=== PATIENT | female | born 1955 | race Caucasian/White ===

== ENCOUNTER → 2017-03-29 | Outpatient (CLI) | payer BC ==
--- NOTE | 2017-03-30 09:09 | MM ---
Reason for exam: screening (asymptomatic). Last mammogram was performed 4 years and 6 months ago. History: Patient is postmenopausal, has history of other cancer at age 61, and has history of endometrial cancer at age 29. Family history of breast cancer in sister at age 52. Benign excisional biopsy of the right breast, November 06, 1998. Excisional biopsy of the left breast. Took estrogen for 5 years beginning at age 42. Physical Findings: A clinical breast exam by your physician is recommended on an annual basis and results should be correlated with mammographic findings. MG 3D Screening Mammo W/Cad Bilateral CC and MLO view(s) were taken. Prior study comparison: September 14, 2012, bilateral digital screening mammo w/CAD. July 14, 2010, [facility] DIGITAL LEFT BREAST MAMMOGRAM w/CAD. The breast tissue is heterogeneously dense. This may lower the sensitivity of mammography. Stable benign calcifications. There is chronic nodularity bilaterally. No significant changes when compared with prior studies. ASSESSMENT: Benign, BI-RAD 2 RECOMMENDATION: Routine screening mammogram of both breasts in 1 year.
== END | disposition home or self-care (01) ==
LOC: RADMAMWWP 14:38
PROVIDERS: ATTEND Obstetrics & Gynecology
DX: Z12.31 Encounter for screening mammogram for malignant neoplasm of breast (principal); Z80.3 Family history of malignant neoplasm of breast
CPT/HCPCS: 77063; G0202

== ENCOUNTER → 2017-07-29 | Outpatient (CLI) | payer BC ==
--- NOTE | 2017-07-29 15:19 | CT ---
EXAMINATION TYPE: CT sinus wo con DATE OF EXAM: 07/29/2017 COMPARISON: CT facial bones March 07, 2011. CT brain August 31, 2014. HISTORY: Chronic sinusitis per order. Facial pain and congestion for 3+ weeks. CT DLP: 578 mGycm. Automated Exposure Control for Dose Reduction was Utilized. TECHNIQUE: CT scan of the sinuses is performed without contrast, axial images are obtained, coronal r eformatted images are also reviewed. FINDINGS: There is moderate to severe mucosal thickening in bilateral maxillary sinuses with patchy o pacification and air-fluid level in right maxillary sinus noted. There is been prior surgery at level frontal sinuses with craniectomy defect, there is defect in oute r wall of overlying curvilinear device. This is not significantly changed from 2015 CT. There is low dense soft tissue filling left frontal sinus with more oval hyperdense tissue filling posterior infer ior right frontal sinus extending into anterior right ethmoid sinus. There is fracture deformity of s uperior nasal bridge and bones. This is not significantly changed from 2015 CT. There is mild residual mucosal thickening involving ethmoid sinuses. Sphenoid sinuses show no suspici ous opacification currently. The surgically treated ostiomeatal complex is patent bilaterally. Visualized portion of mastoid air cells show no abnormal opacification. The globes are intact bilate rally. Visualized portion of brain parenchyma is unremarkable. IMPRESSION: Recurrent acute on chronic bilateral maxillary sinus disease despite sinus surgery.
== END | disposition home or self-care (01) ==
LOC: RADCTMAIN 11:14
PROVIDERS: ATTEND Family Medicine
DX: J01.01 Acute recurrent maxillary sinusitis (principal); J32.0 Chronic maxillary sinusitis
CPT/HCPCS: 70486

== ENCOUNTER → 2018-08-21 | Outpatient (CLI) | payer BC ==
--- NOTE | 2018-08-21 18:33 | US ---
EXAMINATION TYPE: US abdomen limited DATE OF EXAM: 08/21/2018 COMPARISON: NONE CLINICAL HISTORY: M79.3 Panniculitis, unspecified. Panniculitis has a red lump area on abdomen where she gives her insulin injections. Fluid collection seen measuring 1.2 x .3 x .6 cm. IMPRESSION: There is small irregular nonspecific fluid collection in the area of concern. This could be abscess or hematoma or seroma.
== END | disposition home or self-care (01) ==
LOC: RADUSMAIN 17:03
PROVIDERS: ATTEND Family Medicine
DX: M79.3 Panniculitis, unspecified (principal)
CPT/HCPCS: 76705

== ENCOUNTER → 2019-11-18 | Outpatient (CLI) | payer MEDICARE ==
--- NOTE | 2019-11-19 08:33 | MM ---
Reason for exam: screening (asymptomatic). Last mammogram was performed 2 years and 8 months ago. History: Patient is postmenopausal, has history of other cancer at age 61, and has history of endometrial cancer at age 29. Family history of breast cancer in sister at age 52. Benign excisional biopsy of the right breast, November 06, 1998. Excisional biopsy of the left breast. Took hormonal contraceptives for 6 years. Took estrogen for 5 years beginning at age 42. Physical Findings: A clinical breast exam by your physician is recommended on an annual basis and results should be correlated with mammographic findings. MG 3D Screening Mammo W/Cad Bilateral CC and MLO view(s) were taken. Prior study comparison: March 29, 2017, bilateral MG 3d screening mammo w/cad. September 14, 2012, bilateral digital screening mammo w/CAD. The breast tissue is heterogeneously dense. This may lower the sensitivity of mammography. Benign appearing bilateral calcifications. No significant changes when compared with prior studies. ASSESSMENT: Benign, BI-RAD 2 RECOMMENDATION: Routine screening mammogram of both breasts in 1 year.
== END | disposition home or self-care (01) ==
LOC: RADMAMWWP 13:13
PROVIDERS: ATTEND Obstetrics & Gynecology
DX: Z12.31 Encounter for screening mammogram for malignant neoplasm of breast (principal); Z80.3 Family history of malignant neoplasm of breast
CPT/HCPCS: 77063; 77067

== ENCOUNTER → 2019-12-10 | Outpatient (CLI) | payer MEDICARE ==
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
== END | disposition home or self-care (01) ==
LOC: SLEEP 13:07
PROVIDERS: ATTEND Internal Medicine Critical Care Medicine
DX: G47.33 Obstructive sleep apnea (adult) (pediatric) (principal); G47.63 Sleep related bruxism; S82.899A Other fracture of unspecified lower leg, initial encounter for closed fracture; E03.9 Hypothyroidism, unspecified; E11.9 Type 2 diabetes mellitus without complications; E66.9 Obesity, unspecified; I10 Essential (primary) hypertension; J34.9 Unspecified disorder of nose and nasal sinuses; R42 Dizziness and giddiness
CPT/HCPCS: 99211

== ENCOUNTER → 2019-12-24 | Outpatient (CLI) | payer MEDICARE ==
--- NOTE | 2019-12-25 12:51 | CT ---
EXAMINATION TYPE: CT sinus wo con DATE OF EXAM: 12/24/2019 COMPARISON: CT sinus 07/29/2017 HISTORY: chronic sinus congestion CT DLP: 416.5 mGycm. Automated Exposure Control for Dose Reduction was Utilized. TECHNIQUE: CT scan of the sinuses is performed without contrast, axial images are obtained, coronal r eformatted images are also reviewed. FINDINGS: There is mucosal thickening of the bilateral maxillary sinuses with similar appearing hyperostosis of the sinus alba. Bilateral antrectomy postsurgical changes, which are patent. Unchanged right fronta l sinus postsurgical change with craniectomy defect with open defect of the outer wall overlying the medical reception specialist within the frontal ethmoidal recess. Redemonstrated soft tissue filling the left front al sinus. There is mucosal thickening of the ethmoid air cells. The sphenoid sinuses and sphenoid ost ia are patent. Septoplasty changes. There is rightward deviation of the nasal septum inferiorly. Old fracture of the nasal bones redemonstrated. Visualized portion of mastoid air cells show no abnormal opacification. The globes are grossly symme tric bilaterally. IMPRESSION: Extensive paranasal sinus surgery changes redemonstrated. Persistent acute on chronic sinusitis.
== END | disposition home or self-care (01) ==
LOC: RADCTMAIN 16:08
PROVIDERS: ATTEND Otolaryngology
DX: J32.9 Chronic sinusitis, unspecified (principal); Z98.890 Other specified postprocedural states
CPT/HCPCS: 70486

== ENCOUNTER → 2019-12-25 | Outpatient (CLI) | payer MEDICARE ==
[2019-12-25 10:04] VITALS: BP 135/84; PULSE 90; RESP 18; TEMP 98.4
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
--- NOTE | 2020-01-07 18:37 | P.PN ---
Progress Note - Text Progress Note Date: 01/07/20 OUTPATIENT FOLLOW-UP NOTE TEST(S)/RESULTS: Pap smear of the vaginal cuff from 12/25/2019 was negative. METHOD OF NOTIFICATION: Patient Was notified by phone. PATIENT COMMENTS: DIAGNOSIS: Negative Pap smear with history of cervical cancer approximately 1989. DISCUSSION: I have tried to obtain the records from her hysterectomy from [facility] but was unsuccessful. No records of a hysterectomy after 1989 was found. [facility] states that the records from prior to 1989 are n ot available. If I could demonstrate that the hysterectomy was done for cervical dysplasia and not invasive cervical cancer, we could consider discontinuing Pap smears since it has been more than 20 years from this time. Since records were not obtainable, we will continue Pap smears or at least every 2 years with yearly pelvic exam. PLAN: As above. She was advised to return in one year for her annual well woman exam.
== END | disposition home or self-care (01) ==
LOC: WWCWWP 09:42
PROVIDERS: ATTEND Obstetrics & Gynecology
DX: Z53.9 Procedure and treatment not carried out, unspecified reason (principal)

== ENCOUNTER → 2020-02-04 | Day surgery (SDC) | payer MEDICARE ==
[2020-01-29 15:22] VITALS: BMI 38.3
[~2020-02-04] MED LIST: ALPRAZolam 0.25 MG TAB PO PRN; ALPRAZolam 0.5 MG TAB PO PRN; ASPIRIN 325 MG TAB PO ONE; ASPIRIN 81 MG PO SCH; ATORVASTATIN 80 MG TAB PO ONE; HEPARIN SODIUM 1,000 UN/ML (10ML VL) ONE; IOPAMIDOL-370 125ML BTL INJ ONE; LEVOTHYROXINE 50 MCG TAB PO SCH; LIDOCAINE 1% INJ 10MG/ML (20 ML MDV) ONE; LIDOCAINE 1% INJ 10MG/ML (20 ML MDV) SQ ONE; LIOTHYRONINE SODIUM 5 MCG TAB PO SCH; METOPROLOL SUCCINATE 200 MG PO SCH; NITROGLYCERIN SL TABS 0.4 MG TAB SUBLINGUAL PRN; PANTOPRAZOLE 40 MG TABLET PO SCH; RX INFO: IV CONTRAST WAS GIVEN 1 EACH MISC MISCELLANE PRN; SODIUM CHLORIDE 0.9% 1,000 ML IV ONE; SODIUM CHLORIDE 0.9% 1,000 ML IV SCH; SODIUM CHLORIDE 0.9% 1,000 ML in EMPTY BAG 1 BAG IV ONE; VERAPAMIL 2.5 MG/ML 2 ML AMP ONE; VERAPAMIL SYRINGE (5 MG/10 ML) INTRAARTER ONE; fentaNYL (PF) 50 MCG/ML 2 ML AMP IV ONE; fentaNYL (PF) 50 MCG/ML 2 ML AMP ONE
[2020-02-04 11:25] LABS: Glucose,Whole Blood 137 mg/dL (75-99)
[2020-02-04 11:32] VITALS: RESP 16
[2020-02-04] MEDS: MIDAZOLAM 2 MG/2 ML VIAL IV ONE ×2 (12:00→12:02)
[2020-02-04 12:33] LABS: African American GFR (CKD) >90 (>60 ml/min/1.73 sqM); Anion Gap 6 mmol/L; Blood Urea Nitrogen 18 mg/dL (7-17); Calcium 9.5 mg/dL (8.4-10.2); Carbon Dioxide 24 mmol/L (22-30); Chloride 105 mmol/L (98-107); Glucose 134 mg/dL (74-99); Non-African American GFR(CKD) >90 (>60 ml/min/1.73 sqM); Potassium 4.3 mmol/L (3.5-5.1); Sodium 135 mmol/L (137-145)
[2020-02-04 12:42] LABS: Basophils # (A) 0.1 k/uL (0-0.2); Basophils % (A) 0 %; Eosinophils # (A) 0.3 k/uL (0-0.7); Eosinophils % (A) 2 %; HCT 44.5 % (34.0-46.0); HGB 14.4 gm/dL (11.4-16.0); Lymphocytes # (A) 5.4 k/uL (1.0-4.8); Lymphocytes % (A) 46 %; MCH 30.7 pg (25.0-35.0); MCHC 32.3 g/dL (31.0-37.0); MCV 95.1 fL (80.0-100.0); Mean Platelet Volume 7.3; Monocytes # (A) 0.6 k/uL (0-1.0); Monocytes % (A) 5 %; Neutrophils # (A) 5.1 k/uL (1.3-7.7); Neutrophils % (A) 44 %; Platelet Count 278 k/uL (150-450); RBC 4.68 m/uL (3.80-5.40); RDW 12.8 % (11.5-15.5); WBC 11.6 k/uL (3.8-10.6)
--- NOTE | 2020-02-04 13:05 | CC ---
CARDIAC CATHETERIZATION REPORT Mrs. Washburn is a 64-year-old female with known history of hypertension, hyperlipidemia, and diabetes mellitus who has been complaining of progressive fatigue and dyspnea on exertion. She underwent myocardial perfusion imaging that revealed evidence of inducible ischemia involving the mid anterior wall. In view of that, recommendation made regarding cardiac catheterization. The procedures, risks, and complication were discussed with the patient who is in full understanding and agreement. PROCEDURE: Patient was brought to labor arbitrator in a fasting semi-sedated state after receiving fentanyl Benadryl and achieving moderate conscious sedated state. Using Xylocaine anesthesia and Seldinger technique, a 6-Turkmen sheath was introduced in the right radial artery. Selective right and left coronary angiography performed using 5-Turkmen 3.5 bend right and left Eligio catheter, multiple views of the coronary artery including hemiaxial views obtained. Following that, the left Eligio catheter was used to cross the aortic valve and pressures were calculated. Following that, catheter and sheath were removed. Hemostasis was obtained with deployment of a TR band. There was no immediate complication. Patient was returned to her room in stable condition. Of note, the patient received 5000 units of intravenous heparin as well as intra-arterial verapamil. FINDINGS: LEFT MAIN: This is a short size vessel, bifurcating into left circumflex, left anterior descending artery, left main artery has no evidence of high-grade stenosis. LEFT ANTERIOR DESCENDING ARTERY: This is a large-sized vessel, reaching toward the apex with a wraparound apex segment giving rise to 3 diagonal branches. Left anterior descending artery as well as branches, have no evidence of obstructive disease. LEFT CIRCUMFLEX: This is a dominant vessel, giving rise to a large obtuse marginal branch and distally bifurcating into PDA and posterolateral segment and branches. The left circumflex as well as branches have no evidence of obstructive coronary artery disease. RIGHT CORONARY ARTERY: This is a small nondominant vessel, giving rise to an acute marginal branch. There is catheter-induced spasm proximally. The rest of the vessel has no high-grade stenosis. LEFT VENTRICULOGRAM: Left ventriculogram was not performed. HEMODYNAMICS: There was no gradient across the aortic valve. The left ventricular end-diastolic pressure was 14-16 mmHg. CONCLUSION: 1. Normal coronary arteries with no significant obstructive disease. 2. Catheter-induced spasm in the proximal right coronary artery. 3. Left dominant system. RECOMMENDATION: In view of finding anatomy, I recommend continue medical therapy with aggressive risk modifications being initiated. I see no contraindication to her upcoming sinus surgery with Dr. Ernst. Those findings and recommendations were discussed with the patient her family and they are in full understanding and agreement. Duration of sedation is 19 minutes. MMSHANNONL / JAIRN: [id number] /
[2020-02-04 14:41] VITALS: BP 118/72
[2020-02-04 16:03] VITALS: PULSE 72
== END | disposition home or self-care (01) ==
LOC: CATHCVL 10:57
PROVIDERS: ATTEND Internal Medicine Interventional Cardiology
DX: R94.39 Abnormal result of other cardiovascular function study (principal); R53.83 Other fatigue; R06.09 Other forms of dyspnea; I10 Essential (primary) hypertension; E78.2 Mixed hyperlipidemia; E11.9 Type 2 diabetes mellitus without complications; E66.9 Obesity, unspecified; J34.1 Cyst and mucocele of nose and nasal sinus; Z79.899 Other long term (current) drug therapy; Z79.890 Hormone replacement therapy; Z88.5 Allergy status to narcotic agent; Z88.8 Allergy status to other drugs, medicaments and biological substances; Z91.040 Latex allergy status; Z88.2 Allergy status to sulfonamides; Z90.710 Acquired absence of both cervix and uterus; Z98.890 Other specified postprocedural states; Z85.42 Personal history of malignant neoplasm of other parts of uterus; Z87.81 Personal history of (healed) traumatic fracture; Z87.891 Personal history of nicotine dependence; Z68.39 Body mass index [BMI] 39.0-39.9, adult
CPT/HCPCS: 93458; 80048; 85025; C1769; C1894; J2250; J2001; J3010; J1644; Q9967

== ENCOUNTER 2020-02-27 08:19 | Day surgery (SDC) | payer MEDICARE ==
[2020-02-25 15:58] VITALS: BMI 38.7
[~2020-02-27 08:19] MED LIST changes: -ALPRAZolam 0.25 MG TAB PO PRN; -ALPRAZolam 0.5 MG TAB PO PRN; -ASPIRIN 325 MG TAB PO ONE; -ASPIRIN 81 MG PO SCH; -ATORVASTATIN 80 MG TAB PO ONE; +DEXAMETHASONE SOD PHOSPHATE 4 MG/ML 1 ML VIAL IV ONE; +FAMOTIDINE 20 MG/2 ML VIAL IV ONE; -HEPARIN SODIUM 1,000 UN/ML (10ML VL) ONE; -IOPAMIDOL-370 125ML BTL INJ ONE; +LACTATED RINGERS 1,000 ML IV SCH; -LEVOTHYROXINE 50 MCG TAB PO SCH; +LIDOCAINE 1% (10MG/ML) FOR IV START INTRADERMA PRN; -LIDOCAINE 1% INJ 10MG/ML (20 ML MDV) ONE; -LIDOCAINE 1% INJ 10MG/ML (20 ML MDV) SQ ONE; -LIOTHYRONINE SODIUM 5 MCG TAB PO SCH; -METOPROLOL SUCCINATE 200 MG PO SCH; -NITROGLYCERIN SL TABS 0.4 MG TAB SUBLINGUAL PRN; +ONDANSETRON 4 MG/2 ML VIAL IVP ONE; -PANTOPRAZOLE 40 MG TABLET PO SCH; -RX INFO: IV CONTRAST WAS GIVEN 1 EACH MISC MISCELLANE PRN; -SODIUM CHLORIDE 0.9% 1,000 ML IV ONE; -SODIUM CHLORIDE 0.9% 1,000 ML IV SCH; -SODIUM CHLORIDE 0.9% 1,000 ML in EMPTY BAG 1 BAG IV ONE; -VERAPAMIL 2.5 MG/ML 2 ML AMP ONE; -VERAPAMIL SYRINGE (5 MG/10 ML) INTRAARTER ONE; -fentaNYL (PF) 50 MCG/ML 2 ML AMP IV ONE; -fentaNYL (PF) 50 MCG/ML 2 ML AMP ONE
[2020-02-27 09:06] VITALS: TEMP 99
[2020-02-27 09:18] LABS: Glucose,Whole Blood 136 mg/dL (75-99)
[2020-02-27] MEDS: OXYMETAZOLINE 0.05% NASL SPRAY 1 SPRAY BOTTLE NASAL ONE ×5 (09:29→09:49)
[2020-02-27] MEDS ORDERED: SCOPOLAMINE 1.5MG/72HR PATCH TRANSDERM ONE (09:45)
[2020-02-27] MEDS ORDERED: ONDANSETRON 4 MG/2 ML VIAL ONE (10:21)
[2020-02-27] MEDS ORDERED: DEXAMETHASONE SOD PHOSPHATE 10 MG/ML 1 ML VIAL ONE (10:21)
[2020-02-27] MEDS ORDERED: PROPOFOL 10 MG/ML 20 ML VIAL IV ONE (10:21)
[2020-02-27] MEDS ORDERED: LIDOCAINE 1% INJ 10MG/ML (20 ML MDV) ONE (10:21)
[2020-02-27] MEDS ORDERED: MIDAZOLAM 2 MG/2 ML VIAL ONE (10:21)
[2020-02-27] MEDS ORDERED: fentaNYL (PF) 50 MCG/ML 2 ML AMP ONE (10:21)
[2020-02-27] MEDS ORDERED: SUCCINYLCHOLINE CHLORIDE 100 MG/5 ML SYR IV ONE (10:21)
[2020-02-27] MEDS ORDERED: PHENYLEPHRINE-0.9% NACL SYG 1 MG/10 ML SYRINGE ONE (10:21)
[2020-02-27] MEDS ORDERED: BUPIVACAINE (PF) 0.25% 30 ML VIAL SQ ONE ×2 (11:29)
[2020-02-27] MEDS ORDERED: FLUORESCEIN STRIPS 1 MG STRIP MISCELLANE ONE (11:38)
[2020-02-27] MEDS ORDERED: LIDOCAINE 1%-EPI 1:100,000 20 ML VIAL SQ ONE ×2 (11:38)
[2020-02-27] MEDS ORDERED: EPINEPHrine 1 MG/ML (MDV) 30 ML VIAL TOPICAL ONE (11:38)
[2020-02-27] MEDS: HYDROmorphone 0.5 MG/0.5 ML SYRINGE IVP PRN ×2 (12:13→12:55)
[2020-02-27] MEDS ORDERED: LACTATED RINGERS 1,000 ML IV ONE (12:19)
[2020-02-27 12:25] LABS: Glucose,Whole Blood 235 mg/dL (75-99)
[2020-02-27] MEDS ORDERED: INSULIN ASPART (NovoLOG) 100 UNIT/ML VIAL SQ ONE (12:56)
--- NOTE | 2020-02-27 13:09 | P.OP ---
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 Chronic ethmoiditis Left trigeminal neuralgia V1 and V2 Postoperative Diagnosis: Same Procedure(s) Performed: Bilateral functional endoscopic sinus surgery with bilateral frontal sinusotomies and removal of a right frontal sinus mucocele Bilateral maxillary antrostomies with removal of extensive mycetoma bilaterally Bilateral ethmoidectomies total with removal of diseased tissue Left trigeminal nerve block of V1 and V2 with use of bupivacaine and lidocaine Anesthesia: GISELA Surgeon: Silvano Ernst Estimated Blood Loss (ml): 10 Pathology: other (Sinonasal) Condition: stable Disposition: PACU Indications for Procedure: This patient has had previous extensive sinonasal surgery and has developed a mucocele on the right side and bilateral frontal sinusitis bilateral maxillary and ethmoid sinusitis with bilateral maxillary sinus mycetoma. She also has a trigeminal neuralgia on the left. She's failed medical therapy and wishes to proceed forward with surgery with removal of this right frontal mucocele which is causing bony erosion of the posterior wall of the frontal sinus along with removal of her bilateral maxillary sinus mycetoma and cleaning up her chronic ethmoid disease. We'll also be doing a nerve block on the left trigeminal nerve at V1 and V2. All risks, benefits, and alternative therapies were discussed. Consent was obtained and all questions were answered. Operative Findings: Patient was found have a large mucocele on the right frontal sinus that we removed was silvano pus from both frontal sinuses. Patient also had bilateral mycetoma and ethmoiditis which was quite extensive. Description of Procedure: This patient was taken to the operative room and placed in the supine position. A general inhalation anesthetic was administered to the patient by mask and subsequently intubated with a cuffed endotracheal tube the department of anesthesia with a functioning IV line in place. The patient was monitored throughout the entire case by the department of anesthesia. The nose was anesthetized with lidocaine and bupivacaine in the standard fashion. The patient had a septal perforation present evidence of chronic frontal sinusitis ethmoiditis and bilateral maxillary sinusitis with large mycetoma is noted. We entered the maxillary sinuses bilaterally and open the maxillary sinuses more widely both above and below the inferior turbinate. We entered both maxillary sinuses but these of the 0 and 30 Robb virgen scope and we removed a large amount of mycetoma from both maxillary sinuses we also removed diseased tissue from the maxillary sinus with various instrumentation. This was all done under direct visualization with endoscope. After the maxillary sinuses were opened and cleaned and all mycetoma and diseased tissue was removed we then entered the ethmoid sinuses and removed all ethmoid septations and some synechiae and scarring there was noted. This was done bilaterally both anteriorly and posteriorly. After the ethmoid sinuses were opened and all diseased tissue was removed we then entered the frontal sinuses bilaterally we open up the right frontal sinus and large mucocele was removed intranasally. A large amount of pus was seen was no signs of any cerebral spinal fluid leak through the posterior wall of the frontal sinus was eroded from the mucocele that there is no evidence of any CSF leak or penetration into the cerebral spinal fluid region. There was intact. Attention was then paid to the left frontal sinus which was opened with balloon and then once open we widened and the opening we entered the frontal sinus we remove diseased tissue from the left frontal sinus. We were only able to open the left frontal sinus to 7 mm. The right frontal sinus was opened wider but anatomically from previous scar tissue from her mo dified [place] procedure we had limitations on the left side. We reinspected all sinuses and everything looked opened and doing well. We inserted xerogel followed by nasal pore underneath the middle turbinates and the patient was taken to postanesthesia recovery in excellent condition patient tolerated this well and follow-up is scheduled in 1 week. She was advised not to blow her nose and to rest with her head elevated.
[2020-02-27 13:25] VITALS: RESP 16
[2020-02-27 13:55] VITALS: BP 145/65; PULSE 97
[2020-02-27 14:07] LABS: Glucose,Whole Blood 198 mg/dL (75-99)
== END 2020-02-27 14:14 | disposition home or self-care (01) ==
LOC: OR 08:19
PROVIDERS: ATTEND Otolaryngology
DX: J32.8 Other chronic sinusitis (principal); B47.9 Mycetoma, unspecified; G50.0 Trigeminal neuralgia; K21.9 Gastro-esophageal reflux disease without esophagitis; F32.9 Major depressive disorder, single episode, unspecified; E11.9 Type 2 diabetes mellitus without complications; I10 Essential (primary) hypertension; E66.9 Obesity, unspecified; Z68.39 Body mass index [BMI] 39.0-39.9, adult; Z86.73 Personal history of transient ischemic attack (TIA), and cerebral infarction without residual deficits; G43.909 Migraine, unspecified, not intractable, without status migrainosus; R29.90 Unspecified symptoms and signs involving the nervous system; F41.9 Anxiety disorder, unspecified; G83.9 Paralytic syndrome, unspecified; R56.9 Unspecified convulsions; G47.30 Sleep apnea, unspecified; H93.19 Tinnitus, unspecified ear; R42 Dizziness and giddiness; E78.00 Pure hypercholesterolemia, unspecified; M81.0 Age-related osteoporosis without current pathological fracture; G47.33 Obstructive sleep apnea (adult) (pediatric); E07.9 Disorder of thyroid, unspecified; Z90.710 Acquired absence of both cervix and uterus; Z98.51 Tubal ligation status; Z98.890 Other specified postprocedural states; Z82.49 Family history of ischemic heart disease and other diseases of the circulatory system; Z80.42 Family history of malignant neoplasm of prostate; Z82.3 Family history of stroke; Z83.49 Family history of other endocrine, nutritional and metabolic diseases; Z79.3 Long term (current) use of hormonal contraceptives; Z79.4 Long term (current) use of insulin; Z79.891 Long term (current) use of opiate analgesic; Z79.899 Other long term (current) drug therapy; Z88.5 Allergy status to narcotic agent; Z88.2 Allergy status to sulfonamides; Z88.8 Allergy status to other drugs, medicaments and biological substances; Z88.1 Allergy status to other antibiotic agents; Z91.040 Latex allergy status; J30.1 Allergic rhinitis due to pollen; J30.81 Allergic rhinitis due to animal (cat) (dog) hair and dander; J30.89 Other allergic rhinitis
CPT/HCPCS: 31276; 31267; 88305; 88312; C1726; J0171; J2250; J1100 ×2; J2405; J0690; J2001; J3010; J2370; J0330; J2704; J1170

== ENCOUNTER → 2020-07-01 | Outpatient (CLI) | payer MEDICARE ==
[2020-07-01 21:38] LABS: Gliadin AB IgA, Deaminated NEGATIVE (NEGATIVE); Gliadin AB IgA, Unit 0.3 U/mL; Gliadin AB IgG, Deaminated NEGATIVE (NEGATIVE)
== END | disposition home or self-care (01) ==
LOC: LABWHC1 14:42
PROVIDERS: ATTEND Internal Medicine Gastroenterology
DX: K52.9 Noninfective gastroenteritis and colitis, unspecified (principal)
CPT/HCPCS: 36415; 83516

== ENCOUNTER 2020-07-15 07:12 | Day surgery (SDC) | payer MEDICARE ==
[2020-07-13 10:12] VITALS: BMI 36.1
[~2020-07-15 07:12] MED LIST changes: -DEXAMETHASONE SOD PHOSPHATE 4 MG/ML 1 ML VIAL IV ONE; -FAMOTIDINE 20 MG/2 ML VIAL IV ONE; -ONDANSETRON 4 MG/2 ML VIAL IVP ONE
[2020-07-15 07:58] LABS: Glucose,Whole Blood 140 mg/dL (75-99)
[2020-07-15 08:06] VITALS: TEMP 97.9
--- NOTE | 2020-07-15 08:20 | P.PCN ---
Date of Procedure: 07/15/20 Procedure(s) Performed: BRIEF HISTORY: Patient is a 65-year-old pleasant female scheduled for an elective colonoscopy as a part of evaluation of chronic diarrhea for the last several years duration. She has bowel movements anywhere from 10-15 a day which are loose to watery in consistency. Symptoms lately have progressively getting worse. PROCEDURE PERFORMED: Colonoscopy with biopsy. PREOPERATIVE DIAGNOSIS: Chronic diarrhea of several years duration. IV sedation per Anesthesia. PROCEDURE: After informed consent was obtained, the patient, was brought into the endoscopy unit. IV sedation was administered by Anesthesia under continuous monitoring. Digital rectal examination was normal. Initially the Olympus CF-160 flexible video colonoscope was then inserted in the rectum, gradually advanced into the cecum without any difficulty. Careful examination was performed as the scope was gradually being withdrawn. Ileocecal valve and the appendiceal orifice were visualized and appeared normal. Prep was excellent. Mucosa of the cecum, ascending colon, transverse colon, descending colon, appeared normal. Random biopsies were done from ascending and descending colon to rule out microscopic/collagenous colitis. In the sigmoid colon there was a 2 mm and 3 mm polyp that was removed by cold biopsy. Rest of the sigmoid colon, and rectum appeared normal. Retroflexion was performed in the rectum and no lesions were seen. The patient tolerated the procedure well. IMPRESSION: 2 mm and 3 mm sigmoid colon polyp status post removal by cold biopsy Rest of the colon appeared normal . RECOMMENDATIONS: Findings of this examination were discussed with the patient as well as her family. She was advised to follow with the biopsy results. She'll be seen in office in 2 weeks..
[2020-07-15 08:39] VITALS: BP 133/85; PULSE 90; RESP 18
== END 2020-07-15 09:17 | disposition home or self-care (01) ==
LOC: ORWHC2ENDO 07:12
PROVIDERS: ATTEND Internal Medicine Gastroenterology
DX: D12.5 Benign neoplasm of sigmoid colon (principal); I10 Essential (primary) hypertension; E78.5 Hyperlipidemia, unspecified; E11.9 Type 2 diabetes mellitus without complications; E07.9 Disorder of thyroid, unspecified; G43.909 Migraine, unspecified, not intractable, without status migrainosus; R42 Dizziness and giddiness; J32.9 Chronic sinusitis, unspecified; Z90.710 Acquired absence of both cervix and uterus; Z98.890 Other specified postprocedural states; Z79.890 Hormone replacement therapy; Z79.899 Other long term (current) drug therapy; Z79.4 Long term (current) use of insulin; Z88.2 Allergy status to sulfonamides; Z91.040 Latex allergy status; Z88.8 Allergy status to other drugs, medicaments and biological substances; Z91.048 Other nonmedicinal substance allergy status
CPT/HCPCS: 45380; 88305

== ENCOUNTER → 2020-08-10 | Outpatient (CLI) | payer MEDICARE ==
[2020-08-10 17:30] LABS: Basophils # (A) 0.06 X 10*3/uL (0.00-0.10); Basophils % (A) 0.6 %; HCT 47.1 % (37.2-46.3); HGB 15.4 g/dL (12.0-15.0); Lymphocytes # (A) 3.49 X 10*3/uL (0.90-5.00); Lymphocytes % (A) 34.5 %; MCH 31.1 pg (27.0-32.0); MCHC 32.7 g/dL (32.0-37.0); MCV 95.2 fL (80.0-97.0); Mean Platelet Volume 10.8 fL (9.5-12.2); Monocytes # (A) 0.79 X 10*3/uL (0.20-1.00); Monocytes % (A) 7.8 %; Neutrophils # (A) 5.47 X 10*3/uL (1.80-7.70); Neutrophils % (A) 53.9 %; Platelet Count 302 X 10*3/uL (140-440); RBC 4.95 X 10*6/uL (4.10-5.20); RDW 12.5 % (11.5-14.5); WBC 10.13 X 10*3/uL (4.50-10.00)
[2020-08-10 20:30] LABS: Albumin 4.8 g/dL (3.80-4.90); Albumin/Globulin Ratio 2.4 (1.60-3.17); Anion Gap 11.8 mmol/L (4.00-12.00); BUN/Creat Ratio 22.5 Ratio (12.00-20.00); Calcium 10.2 mg/dL (8.7-10.3); Carbon Dioxide 24.2 mmol/L (21.6-31.8); Chol/HDL Ratio 5.98; LDL Cholesterol,Calculated 120.2 mg/dL (0.0-131.0); Non-African American GFR(CKD) 76.8 (60.0-200.0); Total Bilirubin 0.8 mg/dL (0.2-1.2); Total Protein 6.8 g/dL (6.2-8.2); VLDL Calculation 78.8 mg/dL (5.00-40.00)
[2020-08-10 20:38] LABS: T4, Free (Free Thyroxine) 1.3 ng/dL (0.80-1.80)
== END | disposition home or self-care (01) ==
LOC: LABWHC1 07:43
PROVIDERS: ATTEND Family Medicine
DX: E11.9 Type 2 diabetes mellitus without complications (principal); I10 Essential (primary) hypertension; E55.9 Vitamin D deficiency, unspecified; E03.9 Hypothyroidism, unspecified
CPT/HCPCS: 36415; 80053; 80061; 82306; 84439; 84443; 84481; 85025

== ENCOUNTER → 2020-12-29 | Outpatient (CLI) | payer MEDICARE ==
[2020-12-29 10:04] VITALS: BP 126/71; PULSE 78; RESP 12; TEMP 98.1
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
--- NOTE | 2020-12-29 13:48 | MM ---
Reason for exam: screening (asymptomatic). Last mammogram was performed 1 year and 1 month ago. History: Patient is postmenopausal, has history of other cancer at age 61, and has history of endometrial cancer at age 29. Family history of breast cancer in sister at age 52. Benign excisional biopsy of the right breast, November 06, 1998. Excisional biopsy of the left breast. Took hormonal contraceptives for 6 years. Took estrogen for 5 years beginning at age 42. Physical Findings: A clinical breast exam by your physician is recommended on an annual basis and results should be correlated with mammographic findings. MG 3D Screening Mammo W/Cad Bilateral CC and MLO view(s) were taken. Prior study comparison: November 18, 2019, bilateral MG 3d screening mammo w/cad. March 29, 2017, bilateral MG 3d screening mammo w/cad. The breast tissue is heterogeneously dense. This may lower the sensitivity of mammography. There are benign appearing round calcifications bilaterally. Indistinct group of calcifications in the left breast anterior central position. This finding is changed when compared with previous exams. ASSESSMENT: Incomplete: need additional imaging evaluation, BI-RAD 0 RECOMMENDATION: Special view mammogram of the left breast. [facility] will attempt to contact patient to return for supplemental views.
== END ==
LOC: WWCWWP 09:08
PROVIDERS: ATTEND Obstetrics & Gynecology
DX: Z01.419 Encounter for gynecological examination (general) (routine) without abnormal findings (principal); Z12.31 Encounter for screening mammogram for malignant neoplasm of breast; E03.9 Hypothyroidism, unspecified; E11.9 Type 2 diabetes mellitus without complications; E78.5 Hyperlipidemia, unspecified; I10 Essential (primary) hypertension; F41.9 Anxiety disorder, unspecified; F32.9 Major depressive disorder, single episode, unspecified; K21.9 Gastro-esophageal reflux disease without esophagitis; Z79.84 Long term (current) use of oral hypoglycemic drugs; Z79.899 Other long term (current) drug therapy; Z88.2 Allergy status to sulfonamides; Z88.5 Allergy status to narcotic agent; Z91.040 Latex allergy status; Z91.018 Allergy to other foods; Z91.048 Other nonmedicinal substance allergy status; Z80.3 Family history of malignant neoplasm of breast; Z85.41 Personal history of malignant neoplasm of cervix uteri; Z90.711 Acquired absence of uterus with remaining cervical stump
CPT/HCPCS: 77063; 77067

== ENCOUNTER → 2021-01-06 | Outpatient (CLI) | payer MEDICARE ==
--- NOTE | 2021-01-06 09:32 | MM ---
Reason for exam: additional evaluation requested from abnormal screening. Last mammogram was performed less than 1 month ago. History: Patient is postmenopausal, has history of other cancer at age 61, and has history of endometrial cancer at age 29. Family history of breast cancer in sister at age 52. Benign excisional biopsy of the right breast, November 06, 1998. Excisional biopsy of the left breast. Took hormonal contraceptives for 6 years. Took estrogen for 5 years beginning at age 42. Physical Findings: Nurse did not find any significant physical abnormalities on exam. MG 3D Work Up W/Cad LT CC with magnification, ML with magnification, and ML view(s) were taken of the left breast. Prior study comparison: December 29, 2020, bilateral MG 3d screening mammo w/cad. November 18, 2019, bilateral MG 3d screening mammo w/cad. There are a few scattered calculi left breast. 6 month follow up recommended. These results were verbally communicated with the patient and result sheet given to the patient on 01/06/21. ASSESSMENT: Probably benign, BI-RAD 3 RECOMMENDATION: Follow-up diagnostic mammogram of the left breast in 6 months.
== END | disposition home or self-care (01) ==
LOC: RADMAMWWP 08:18
PROVIDERS: ATTEND Obstetrics & Gynecology
DX: R92.1 Mammographic calcification found on diagnostic imaging of breast (principal); Z85.42 Personal history of malignant neoplasm of other parts of uterus; Z80.3 Family history of malignant neoplasm of breast
CPT/HCPCS: 77065; G0279; 77061

== ENCOUNTER → 2021-06-30 | Outpatient (CLI) | payer MEDICARE ==
--- NOTE | 2021-06-30 14:21 | MM ---
Reason for exam: follow-up at short interval from prior study. Last mammogram was performed 6 months ago. History: Patient is postmenopausal, has history of other cancer at age 61, and has history of endometrial cancer at age 29. Family history of breast cancer in sister at age 52. Benign excisional biopsy of the right breast, November 06, 1998. Excisional biopsy of the left breast. Took hormonal contraceptives for 6 years. Took estrogen for 5 years beginning at age 42. Physical Findings: A clinical breast exam by your physician is recommended on an annual basis and results should be correlated with mammographic findings. MG 3D Diag Mammo W/Cad LT CC and MLO view(s) were taken of the left breast. Prior study comparison: January 06, 2021, left breast MG 3d work up w/cad LT. The breast tissue is heterogeneously dense. This may lower the sensitivity of mammography. Finding: There are diffuse/scattered, fine calcifications in the left breast. No suspicious group or increase clustered calcification. No significant changes in finding since January 06, 2021. ASSESSMENT: Benign, BI-RAD 2 RECOMMENDATION: Return to routine screening mammogram schedule for both breasts. Back on schedule.
== END | disposition home or self-care (01) ==
LOC: RADMAMWWP 12:49
PROVIDERS: ATTEND Obstetrics & Gynecology
DX: R92.8 Other abnormal and inconclusive findings on diagnostic imaging of breast (principal); Z78.0 Asymptomatic menopausal state; Z80.3 Family history of malignant neoplasm of breast
CPT/HCPCS: 77065; G0279; 77061

== ENCOUNTER → 2021-12-28 | Outpatient (CLI) | payer MEDICARE ==
[~2021-12-28] MED LIST changes: +BEBTELOVIMAB (EUA) 175 MG/2 ML VIAL IV NR; -LACTATED RINGERS 1,000 ML IV SCH; -LIDOCAINE 1% (10MG/ML) FOR IV START INTRADERMA PRN; +SODIUM CHLORIDE 0.9% 500 ML 500 ML in EMPTY BAG 1 BAG IV PRN
[2021-12-28 13:57] VITALS: TEMP 97.5
[2021-12-28 14:28] VITALS: BP 118/78; PULSE 80; RESP 16
== END ==
LOC: PROCWHC3 12:46
PROVIDERS: ATTEND Nurse Practitioner Adult Health
DX: U07.1 COVID-19 (principal); E11.9 Type 2 diabetes mellitus without complications; Z88.2 Allergy status to sulfonamides; Z91.040 Latex allergy status; Z91.02 Food additives allergy status; Z91.048 Other nonmedicinal substance allergy status; Z88.8 Allergy status to other drugs, medicaments and biological substances
CPT/HCPCS: Q0222; M0222

== ENCOUNTER → 2022-02-01 | Outpatient (CLI) | payer MEDICARE ==
[2022-02-01 09:33] VITALS: BP 126/81; PULSE 84; RESP 18; TEMP 97.8
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
--- NOTE | 2022-02-02 12:00 | MM ---
Reason for Exam: Screening (asymptomatic). Last mammogram was performed 1 year(s) and 1 month(s) ago. Patient History: Menarche at age 11. First Full-Term at age 24. Hysterectomy at age 29. Postmenopausal. Patient has history of breast feeding. Other cancer, age 61. Estrogen for 5 years from age 42 until age 47. Patient used Hormonal Contraceptives for 6 years. Excisional Biopsy on the Left side. 11/06/1998, Benign Excisional Biopsy on the right side. Niece had breast cancer, age 50. Niece had breast cancer, age 55. Sister had breast cancer, age 52. Risk Values: Keisha 5 year model risk: 5.0%. NCI Lifetime model risk: 16.2%. Prior Study Comparison: 12/29/2020 Bilateral Screening Mammogram, [facility]. 01/06/2021 Left Diagnostic Mammogram, [facility]. 06/30/2021 Left Diagnostic Mammogram, [facility]. Tissue Density: The breast tissue is heterogeneously dense. This may lower the sensitivity of mammography. Findings: Analyzed By CAD. Scattered tiny benign-appearing round calcifications throughout the bilateral breasts are redemonstrated. Benign-appearing bilateral axillary lymph nodes are again seen. There is no suspicious new group of microcalcifications or new suspicious mass in either breast. Overall Assessment: Benign, BI-RAD 2 Management: Screening Mammogram of both breasts in 1 year. A clinical breast exam by your physician is recommended on an annual basis and results should be correlated with mammographic findings. Electronically signed and approved by: Yohan Harrell M.D.
== END ==
LOC: WWCWWP 09:15
PROVIDERS: ATTEND Obstetrics & Gynecology
DX: Z01.419 Encounter for gynecological examination (general) (routine) without abnormal findings (principal); Z12.31 Encounter for screening mammogram for malignant neoplasm of breast; Z90.711 Acquired absence of uterus with remaining cervical stump; Z78.0 Asymptomatic menopausal state; Z91.040 Latex allergy status; Z88.2 Allergy status to sulfonamides; Z88.5 Allergy status to narcotic agent; Z91.048 Other nonmedicinal substance allergy status; Z91.018 Allergy to other foods
CPT/HCPCS: 77063; 77067

== ENCOUNTER → 2022-07-22 | Outpatient (CLI) | payer MEDICARE ==
[2022-07-22 13:10] VITALS: BP 121/91; PULSE 95; RESP 17; TEMP 97.9
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
== END ==
LOC: WWCWWP 12:57
PROVIDERS: ATTEND Surgery
DX: N64.52 Nipple discharge (principal); E03.9 Hypothyroidism, unspecified; G35 Multiple sclerosis; E11.9 Type 2 diabetes mellitus without complications; R55 Syncope and collapse; E78.5 Hyperlipidemia, unspecified; I10 Essential (primary) hypertension; K21.9 Gastro-esophageal reflux disease without esophagitis; Z80.3 Family history of malignant neoplasm of breast; Z79.890 Hormone replacement therapy; Z79.899 Other long term (current) drug therapy; Z79.85 Long-term (current) use of injectable non-insulin antidiabetic drugs; Z88.0 Allergy status to penicillin; Z88.2 Allergy status to sulfonamides; Z91.040 Latex allergy status; Z91.048 Other nonmedicinal substance allergy status; Z88.5 Allergy status to narcotic agent; Z91.02 Food additives allergy status; Z88.8 Allergy status to other drugs, medicaments and biological substances

== ENCOUNTER → 2022-08-01 | Outpatient (CLI) | payer MEDICARE ==
--- NOTE | 2022-08-01 09:10 | USB ---
Reason for Exam: Clinical finding. Patient History: Menarche at age 11. First Full-Term at age 24. Hysterectomy at age 29. Postmenopausal. Patient has history of breast feeding. Other cancer, age 61. Estrogen for 5 years from age 42 until age 47. Patient used Hormonal Contraceptives for 6 years. Excisional Biopsy on the Left side. 11/06/1998, Benign Excisional Biopsy on the right side. Niece had breast cancer, age 50. Niece had breast cancer, age 55. Sister had breast cancer, age 52. Risk Values: Keisha 5 year model risk: 5.0%. NCI Lifetime model risk: 15.5%. Technique: Method: Whole Breast Handheld. Prior Study Comparison: 01/06/2021 Left Diagnostic Mammogram, [facility]. 06/30/2021 Left Diagnostic Mammogram, [facility]. 02/01/2022 Bilateral MG 3D screening mammo w/cad, [facility]. Findings: The whole breast of the right breast, the axilla of the right breast and the retroareolar of the right breast were scanned. A complete US of all four quadrants of the breast and retro-areolar region were reviewed. No solid or cystic masses are identified.. Overall Assessment: Negative, BI-RAD 1 Management: Screening Mammogram of both breasts in 6 months. Manage clinically. Return to routine follow-up. Results were given to the patient verbally at the time of exam. Electronically signed and approved by: Yohan Harrell M.D.
== END | disposition home or self-care (01) ==
LOC: RADUSWWP 08:47
PROVIDERS: ATTEND Surgery
DX: N64.52 Nipple discharge (principal); Z78.0 Asymptomatic menopausal state

== ENCOUNTER → 2023-02-15 | Outpatient (CLI) | payer MEDICARE ==
--- NOTE | 2023-02-16 11:10 | MM ---
Reason for Exam: Screening (asymptomatic). Last mammogram was performed 1 year(s) and 1 month(s) ago. Patient History: Menarche at age 11. First Full-Term at age 24. Hysterectomy at age 29. Postmenopausal. Patient has history of breast feeding. Other cancer, age 61. Estrogen for 5 years from age 42 until age 47. Patient used Hormonal Contraceptives for 6 years. Excisional Biopsy on the Left side. 11/06/1998, Benign Excisional Biopsy on the right side. Niece had breast cancer, age 50. Niece had breast cancer, age 55. Maternal half sister had breast cancer, age 52. Risk Values: Keisha 5 year model risk: 2.8%. NCI Lifetime model risk: 9.1%. Prior Study Comparison: 01/06/2021 Left Diagnostic Mammogram, [facility]. 06/30/2021 Left Diagnostic Mammogram, [facility]. 02/01/2022 Bilateral MG 3D screening mammo w/cad, [facility]. Tissue Density: There are scattered fibroglandular densities. Findings: Analyzed By CAD. Pattern appears symmetrical and stable. No suspicious groups of microcalcifications, spiculated or lobular masses, architectural distortion or other secondary signs of malignancy are mammographically apparent. Overall Assessment: Benign, BI-RAD 2 Management: Screening Mammogram of both breasts in 1 year. A negative mammogram report should not preclude additional follow up of suspicious palpable abnormalities. Patient should continue monthly self breast exam. A clinical breast exam by your physician is recommended on an annual basis and results should be correlated with mammographic findings. Electronically signed and approved by: Eliecer Braga D.O. Radiologis
== END | disposition home or self-care (01) ==
LOC: RADMAMWWP 13:29
PROVIDERS: ATTEND Surgery
DX: Z12.31 Encounter for screening mammogram for malignant neoplasm of breast (principal); Z78.0 Asymptomatic menopausal state; Z80.3 Family history of malignant neoplasm of breast
CPT/HCPCS: 77063; 77067

== ENCOUNTER → 2023-02-23 | Outpatient (CLI) | payer MEDICARE ==
[2023-02-23 09:09] VITALS: BP 130/83; PULSE 84; RESP 17; TEMP 97.8
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
== END ==
LOC: WWCWWP 08:35
PROVIDERS: ATTEND Surgery
DX: Z12.31 Encounter for screening mammogram for malignant neoplasm of breast (principal); N64.52 Nipple discharge; E11.9 Type 2 diabetes mellitus without complications; K21.9 Gastro-esophageal reflux disease without esophagitis; E03.9 Hypothyroidism, unspecified; E78.5 Hyperlipidemia, unspecified; I10 Essential (primary) hypertension; G35 Multiple sclerosis; Z86.69 Personal history of other diseases of the nervous system and sense organs; Z80.3 Family history of malignant neoplasm of breast; Z85.41 Personal history of malignant neoplasm of cervix uteri; Z85.9 Personal history of malignant neoplasm, unspecified; Z86.79 Personal history of other diseases of the circulatory system; Z86.39 Personal history of other endocrine, nutritional and metabolic disease; Z79.84 Long term (current) use of oral hypoglycemic drugs; Z79.890 Hormone replacement therapy; Z88.0 Allergy status to penicillin; Z88.1 Allergy status to other antibiotic agents; Z88.2 Allergy status to sulfonamides; Z88.5 Allergy status to narcotic agent; Z91.040 Latex allergy status; Z91.018 Allergy to other foods; Z91.048 Other nonmedicinal substance allergy status; Z79.899 Other long term (current) drug therapy

== ENCOUNTER → 2023-03-01 | Outpatient (CLI) | payer MEDICARE ==
[2023-03-01 17:38] LABS: ALT 19 U/L (8-44); AST 15 U/L (13-35); Albumin 4.5 g/dL (3.8-4.9); Albumin/Globulin Ratio 2.14 Ratio (1.60-3.17); Alkaline Phosphatase 78 U/L (41-126); Blood Urea Nitrogen 19.5 mg/dL (9.0-27.0); C Reactive Protein, High Sens 0.995 mg/L (0.000-3.000); Calcium 10.2 mg/dL (8.7-10.3); Carbon Dioxide 24.9 mmol/L (21.6-31.8); Chloride 99 mmol/L (96-109); Chol/HDL Ratio 2.98 Ratio; Globulin 2.1 g/dL (1.6-3.3); Glucose 150 mg/dL (70-110); LDL Cholesterol,Calculated 52.5 mg/dL (0.0-131.0); Potassium 4.5 mmol/L (3.5-5.5); Sodium 136 mmol/L (135-145); T4, Free (Free Thyroxine) 1.06 ng/dL (0.80-1.80); Total Bilirubin 0.6 mg/dL (0.3-1.2); Total Protein 6.6 g/dL (6.2-8.2)
[2023-03-01 17:51] LABS: Basophils # (M) 0 X 10*3/uL (0.00-0.10); HCT 44.2 % (37.2-46.3); HGB 14.8 g/dL (12.0-15.0); MCH 31.4 pg (27.0-32.0); MCHC 33.5 g/dL (32.0-37.0); MCV 93.6 FL (80.0-97.0); Mean Platelet Volume 9.9 FL (9.5-12.2); NRBC Per 100 WBC 0 X 10*3/uL (0.00-0.01); Platelet Count 316 X 10*3/uL (140-440); RBC 4.72 X 10*6/uL (4.10-5.20); RDW 11.9 % (11.5-14.5); WBC 13.68 X 10*3/uL (4.50-10.00)
[2023-03-01 17:53] LABS: Eosinophils # (M) 0.27 X 10*3/uL (0.04-0.35); Lymphocytes # (M) 5.75 X 10*3/uL (0.90-5.00); Monocytes # (M) 0.96 X 10*3/uL (0.20-1.00); Neutrophils % (M) 48 %
== END | disposition home or self-care (01) ==
LOC: LABWHC1 07:59
PROVIDERS: ATTEND Family Medicine
DX: Z00.01 Encounter for general adult medical examination with abnormal findings (principal); E11.9 Type 2 diabetes mellitus without complications; E03.9 Hypothyroidism, unspecified; E55.9 Vitamin D deficiency, unspecified
CPT/HCPCS: 36415; 80053; 80061; 82306; 84439; 84443; 84481; 85025; 86141

== ENCOUNTER 2023-04-25 08:49 | Emergency (ER) | payer MEDICARE ==
[2023-04-25] MEDS ORDERED: SODIUM CHLORIDE 0.9% 1,000 ML IV STA (08:59)
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
[2023-04-25 10:12] LABS: Basophils # (A) 0.1 k/uL (0-0.2); Basophils % (A) 1 %; Eosinophils # (A) 0.2 k/uL (0-0.7); Eosinophils % (A) 3 %; HCT 44.6 % (34.0-46.0); HGB 15.5 gm/dL (11.4-16.0); Lymphocytes % (A) 32 %; MCH 32.7 pg (25.0-35.0); MCHC 34.6 g/dL (31.0-37.0); MCV 94.4 fL (80.0-100.0); Mean Platelet Volume 7.9; Monocytes # (A) 0.5 k/uL (0-1.0); Monocytes % (A) 5 %; Neutrophils # (A) 5.4 k/uL (1.3-7.7); Neutrophils % (A) 58 %; Platelet Count 239 k/uL (150-450); RBC 4.73 m/uL (3.80-5.40); WBC 9.2 k/uL (3.8-10.6)
[2023-04-25 10:20] LABS: Appearance,Urine Clear (Clear); Bilirubin,Urine Negative (Negative); Blood,Urine Negative (Negative); Color,Urine Colorless; Glucose,Urine (UA) 4+ (Negative); Ketones,Urine Negative (Negative); Leukocyte Esterase,Urine Negative (Negative); Nitrite,Urine Negative (Negative); PH, Urine 5.5 (5.0-8.0); Protein,Urine Negative (Negative); Specific Gravity,Urine 1.025 (1.001-1.035); Urobilinogen,Urine <2.0 mg/dL (<2.0)
[2023-04-25 10:22] LABS: INR 0.9 (<1.2); Partial Thromboplastin Time 24.1 sec (22.0-30.0); Prothrombin Time 10.4 sec (10.0-12.5)
--- NOTE | 2023-04-25 10:25 | XR ---
EXAMINATION TYPE: XR chest 2V DATE OF EXAM: 04/25/2023 10:21 AM CLINICAL INDICATION:Female, 67 years old with history of syncope; [facility] COMPARISON: None TECHNIQUE: XR chest 2V Frontal and lateral views of the chest. FINDINGS: Lungs/Pleura: There is no evidence of pleural effusion, focal consolidation, or pneumothorax. Pulmonary vascularity: Unremarkable. Heart/mediastinum: Cardiomediastinal silhouette is unremarkable. Musculoskeletal: No acute osseous pathology. Other findings: None IMPRESSION: No acute cardiopulmonary disease/process.
[2023-04-25 10:27] LABS: ALT 26 U/L (4-34); AST 27 U/L (14-36); African American GFR (CKD) >90 (>60 ml/min/1.73 sqM); Albumin 4.4 g/dL (3.5-5.0); Alkaline Phosphatase 94 U/L (38-126); Anion Gap 11 mmol/L; Blood Urea Nitrogen 18 mg/dL (7-17); Calcium 9.9 mg/dL (8.4-10.2); Carbon Dioxide 20 mmol/L (22-30); Chloride 107 mmol/L (98-107); Glucose 187 mg/dL (74-99); Magnesium 1.9 mg/dL (1.6-2.3); Non-African American GFR(CKD) >90 (>60 ml/min/1.73 sqM); Potassium 4.3 mmol/L (3.5-5.1); Sodium 138 mmol/L (137-145); Total Bilirubin 0.6 mg/dL (0.2-1.3); Total Protein 6.9 g/dL (6.3-8.2)
[2023-04-25 11:27] VITALS: BP 140/63; PULSE 78; RESP 16; TEMP 98.9
== END 2023-04-25 11:29 | disposition home or self-care (01) ==
LOC: EC 08:49
DX: E86.0 Dehydration (principal); R55 Syncope and collapse; E11.9 Type 2 diabetes mellitus without complications; I10 Essential (primary) hypertension; E07.9 Disorder of thyroid, unspecified; Z79.890 Hormone replacement therapy; Z79.899 Other long term (current) drug therapy; Z79.84 Long term (current) use of oral hypoglycemic drugs; Z79.85 Long-term (current) use of injectable non-insulin antidiabetic drugs; Z86.59 Personal history of other mental and behavioral disorders; Z88.2 Allergy status to sulfonamides; Z88.0 Allergy status to penicillin; Z91.040 Latex allergy status; Z88.5 Allergy status to narcotic agent; Z88.1 Allergy status to other antibiotic agents; Z88.8 Allergy status to other drugs, medicaments and biological substances
CPT/HCPCS: 36415; 71046; 80053; 81003; 83735; 84484; 85025; 85610; 85730; 93005; 99284

== ENCOUNTER → 2023-06-27 | Outpatient (CLI) | payer MEDICARE ==
--- NOTE | 2023-07-10 10:09 | P.CEMON ---
7 Day Event monitor note: Patient wore an event monitor for 7 days from 06/29/19- through 07/03/2023. Findings: Patient's baseline heart rate was normal sinus rhythm. There were no signficant atrial fibrillation, atrial flutter, or ventricular tachycardia episodes. There were no significant pauses greater than 2 seconds. There were a total of 35 patient activated events which corresponded with normal sinus rhythm Conclusions: 7 day event monitor showing normal sinus rhythm and no significant atrial fibrillation, ventricular tachycardia or tachycardia or bradycardia. Patient activated events corresponding with normal sinus rhythm.
--- NOTE | 2023-07-11 09:59 | EM ---
Patient wore an event monitor for 7 days from 06/29/19- through 07/03/2023. Findings: Patient's baseline heart rate was normal sinus rhythm. There were no significant atrial fibrillation, atrial flutter, or ventricular tachycardia episodes. There were no significant pauses greater than 2 seconds. There were a total of 35 patient activated events which corresponded with normal sinus rhythm Conclusions: 7 day event monitor showing normal sinus rhythm and no significant atrial fibrillation, ventricular tachycardia or tachycardia or bradycardia. Patient activated events corresponding with normal sinus rhythm. [facility]
== END | disposition home or self-care (01) ==
LOC: RADECHMAIN 07:52
PROVIDERS: ATTEND Family Medicine
DX: R55 Syncope and collapse (principal)
CPT/HCPCS: 93270

== ENCOUNTER → 2024-03-05 | Outpatient (CLI) | payer MEDICARE ==
[2024-03-05 09:43] VITALS: BP 145/66; PULSE 92; RESP 17; TEMP 98.4
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
--- NOTE | 2024-03-06 16:51 | MM ---
Reason for Exam: Screening (asymptomatic). Last screening mammogram was performed 12 month(s) ago. Patient History: Menarche at age 11. First Full-Term at age 24. Hysterectomy at age 29. Postmenopausal. Patient has history of breast feeding. Estrogen for 5 years from age 42 until age 47. Patient used Hormonal Contraceptives for 6 years. Excisional Biopsy on the Left side. 11/06/1998, Benign Excisional Biopsy on the right side. Niece had breast cancer, age 50. Niece had breast cancer, age 55. Paternal half sister had breast cancer, age 52. Risk Values: Keisha 5 year model risk: 2.9%. NCI Lifetime model risk: 8.7%. Prior Study Comparison: 06/30/2021 Left Diagnostic Mammogram, [facility]. 02/01/2022 Bilateral MG 3D screening mammo w/cad, [facility]. 02/15/2023 Bilateral MG 3D screening mammo w/cad, [facility]. Tissue Density: The breasts are heterogeneously dense, which may obscure small masses. Findings: Analyzed By CAD. Areas of asymmetric density are unchanged. There is no suspicious group of microcalcifications or new suspicious mass in either breast. Overall Assessment: Benign, BI-RAD 2 Management: Screening Mammogram of both breasts in 1 year. Patient should continue monthly self-breast exams. A clinical breast exam by your physician is recommended on an annual basis. This exam should not preclude additional follow-up of suspicious palpable abnormalities. Note on Keisha scores and lifetime risk: 1. A Keisha score greater than 3% is considered moderate risk. If this is the case, consider specialist referral to assess eligibility for a risk reducing agent. 2. If overall lifetime risk for the development of breast cancer is 20% or higher, the patient may qualify for future screening with alternating mammogram and breast MRI. [facility], , 03/06/2024 4:48 PM. Electronically signed and approved by: Hero Aamya M.D. Radiologist
== END ==
LOC: WWCWWP 09:27
PROVIDERS: ATTEND Obstetrics & Gynecology
DX: Z12.31 Encounter for screening mammogram for malignant neoplasm of breast (principal); Z78.0 Asymptomatic menopausal state; Z85.41 Personal history of malignant neoplasm of cervix uteri; Z90.710 Acquired absence of both cervix and uterus; Z88.0 Allergy status to penicillin; Z88.2 Allergy status to sulfonamides; Z88.5 Allergy status to narcotic agent; Z88.1 Allergy status to other antibiotic agents; Z91.040 Latex allergy status; Z88.8 Allergy status to other drugs, medicaments and biological substances; Z91.018 Allergy to other foods; Z80.3 Family history of malignant neoplasm of breast; Z91.048 Other nonmedicinal substance allergy status
CPT/HCPCS: 77063; 77067

== ENCOUNTER → 2024-04-16 | Outpatient (CLI) | payer MEDICARE ==
--- NOTE | 2024-04-22 07:40 | BD ---
EXAMINATION TYPE: Axial Bone Density DATE OF EXAM: 04/16/2024 CLINICAL HISTORY: 68 years old Female. ICD-10 CODE: Z78.0 POSTMENOPAUSAL , Additional History: Height: 60 in Weight: 178 lbs FRAX RISK QUESTIONS: History of Fracture in Adulthood: lt tib/fib fx age 62; lt ankle fx age 54; lt wrist fx age 48; rt fo ot fx age 66 Secondary Osteoporosis: 3. Menopause before 44: partial hysterectomy age 31 HISTORY OF: History of Wrist Fracture: lt wrist age 48 MEDICATIONS: Thyroid Medications: yes Which medication: Levothyroxine How Lon+ years EXAM MEASUREMENTS: Bone mineral densitometry was performed using the [employer] System. Bone mineral density as measured about the Lumbar spine is: ----- L1-L4(G/cm2): 1.074 T Score Values are as follows: ----- L1: -1.0 ----- L2: -0.5 ----- L3: -0.6 ----- L4: -1.5 ----- L1-L4: -0.9 Z Score Values are as follows: ----- L1: 0.2 ----- L2: 0.7 ----- L3: 0.6 ----- L4: -0.4 ----- L1-L4: 0.3 Bone mineral density baseline Bone mineral density about the R hip (g/cm2): 0.829 Bone mineral density about the L hip (g/cm2): 0.824 T Score values are as follows: -----R Neck: -0.7 -----L Neck: -1.9 -----R Total: -1.4 -----L Total: -1.5 Z Score values are as follows: -----R Neck: 0.6 -----L Neck: -0.6 -----R Total: -0.3 -----L Total: -0.4 Bone mineral density baseline FRAX%s: The graph provided illustrates a 16.8% chance for a major osteoporotic fx and a 2.9% chance f or the hips probability for fx in 10 years time. IMPRESSION: Osteopenia (T Score between -2.5 and -1). There is slightly increased risk of fracture and the patient may be considered for treatment. Re-Screen 2-5 years. NOTE: T-SCORE=SD OF THE YOUNG ADULT MEAN. [facility], , 04/22/2024 7:37 AM
--- NOTE | 2024-04-23 12:09 | P.PN ---
Progress Note - Text Progress Note Date: 04/23/24 OUTPATIENT FOLLOW-UP NOTE TEST(S)/RESULTS: Bone density test done on 04/16/2024 shows osteopenia. METHOD OF NOTIFICATION: The patient was notified by phone on 04/24/2024. PATIENT COMMENTS: The patient states she had a bone density test about 10 years ago and believes it was normal. DIAGNOSIS: Osteopenia. DISCUSSION: I have stressed the importance of getting adequate calcium, vitamin D, and regular exercise. Will plan on repeating this in approximately 2 years. PLAN: As above.
== END | disposition home or self-care (01) ==
LOC: RADBDWWP 12:48
PROVIDERS: ATTEND Obstetrics & Gynecology
DX: M85.89 Other specified disorders of bone density and structure, multiple sites (principal); Z78.0 Asymptomatic menopausal state
CPT/HCPCS: 77080

== ENCOUNTER → 2024-04-23 | Outpatient (CLI) | payer MEDICARE ==
--- NOTE | 2024-04-23 10:14 | CT ---
EXAMINATION TYPE: CT sinus wo con DATE OF EXAM: 04/23/2024 9:31 AM COMPARISON: 12/24/2019 CLINICAL INDICATION: Female, 68 years old with history of J32.0 chronic maxillary sinusitis; , chroni c maxillary sinusitis TECHNIQUE: Multiple thin axial images were obtained through the paranasal sinuses without the use of IV contrast. Additional coronal and sagittal reformatted images were submitted for evaluation. Contrast used: none Oral contrast used: none CT DLP: 660.80 mGycm, Automated exposure control for dose reduction was used. FINDINGS: Frontal sinuses: Normally developed left opacified. Frontal Recess: Opacified left hamate. Suspected postsurgical changes anterior skull with depression present. Unchanged from prior. Maxillary Sinuses: Normally developed with mucosal thickening bilaterally most proximal inferiorly. Maxillary Infundibula([facility]): Surgical changes with an antrostomy bilaterally, No Rene cells identifi ed. Ethmoid sinuses: Normally developed mucosal thickening bilaterally worse on the anterior aspect.. Pro jected left and vulnerable right ethmoidal arteries bilaterally. There is sellar sphenoid sinus pneum atization without evidence of dehiscence. No dehiscence of carotid canal. No evidence of optic nerve dehiscence within the sphenoid sinus. No evidence of Onodi cells. Sphenoethmoidal recesses: Clear. Nasal septum: Defect within the nasal septum possibly postsurgical. Unchanged from prior. Nasal Turbinates: Mucosal thickening of the turbinates. Mastoid air cells & middle ears: The air cells are clear. The middle ears are grossly unremarkable. Modified Soft tissues & Brain: Partially seen without gross abnormality. Globes are intact. Other: Cribriform plate demonstrates symmetric Keros classification type 2 cribriform plate. No evidence of bony dehiscence of skull base. Lamina papyracea is intact without evidence of remote orbital fracture or orbital prolapse into the e thmoid sinus. IMPRESSION: 1. Moderate to severe paranasal sinus disease which is improved from 12/24/2019 2. Postsurgical changes to the ostiomeatal complexes with mucosal thickening of the maxillary sinuse s. 3. Post surgical changes to the nasal septum versus chronic defect. 4. Completely opacified left frontal sinus with suspected postsurgical changes in the frontal bone. Stable from 2019 [facility], , 04/23/2024 10:12 AM
== END | disposition home or self-care (01) ==
LOC: RADCTMAIN 09:15
PROVIDERS: ATTEND Otolaryngology
DX: J32.0 Chronic maxillary sinusitis (principal); J34.89 Other specified disorders of nose and nasal sinuses; Z98.890 Other specified postprocedural states
CPT/HCPCS: 70486

== ENCOUNTER 2024-06-05 08:11 | Day surgery (SDC) | payer MEDICARE ==
[2024-05-31 15:33] VITALS: BMI 33.0
[~2024-06-05 08:11] MED LIST changes: -BEBTELOVIMAB (EUA) 175 MG/2 ML VIAL IV NR; +HYDROmorphone 0.5 MG/0.5 ML SYRINGE IVP PRN; -SODIUM CHLORIDE 0.9% 500 ML 500 ML in EMPTY BAG 1 BAG IV PRN
[2024-06-05] MEDS: OXYMETAZOLINE 0.05% NASL SPRAY 1 SPRAY BOTTLE EA NOSTRIL PRN (08:30)
[2024-06-05 08:44] LABS: Glucose,Whole Blood 151 mg/dL (70-110)
[2024-06-05] MEDS: LACTATED RINGERS 1,000 ML IV ONE (08:44)
[2024-06-05] MEDS: LACTATED RINGERS 1,000 ML IV SCH (08:48)
[2024-06-05] MEDS: DEXAMETHASONE SOD PHOSPHATE 4 MG/ML 1 ML VIAL IV ONE (08:48)
[2024-06-05] MEDS: ONDANSETRON 4 MG/2 ML VIAL IVP ONE (08:49)
[2024-06-05] MEDS: FAMOTIDINE 20 MG/2 ML VIAL IV PRN (08:49)
[2024-06-05] MEDS ORDERED: fentaNYL (PF) 50 MCG/ML 2 ML AMP ONE (09:47)
[2024-06-05] MEDS ORDERED: GLYCOPYRROLATE 0.2 MG/ML 2 ML VIAL ONE (09:47)
[2024-06-05] MEDS ORDERED: LIDOCAINE 4% LTA KIT (4 ML) TOPICAL ONE (09:47)
[2024-06-05] MEDS ORDERED: MIDAZOLAM 2 MG/2 ML VIAL ONE (09:47)
[2024-06-05] MEDS ORDERED: SUCCINYLCHOLINE CHLORIDE 200 MG/10 ML VIAL IV ONE (09:47)
[2024-06-05] MEDS ORDERED: PROPOFOL 10 MG/ML 20 ML VIAL IV ONE (09:47)
[2024-06-05] MEDS ORDERED: LIDOCAINE 1% INJ 10MG/ML (20 ML MDV) ONE (09:47)
[2024-06-05] MEDS: LIDOCAINE 1%-EPI 1:100,000 20 ML VIAL SUBMUCOSAL ONE ×3 (09:56→10:04)
[2024-06-05] MEDS: CLINDAMYCIN 600 MG in DEXTROSE 5% IN WATER 50 ML IVPB PRN (09:56)
--- NOTE | 2024-06-05 10:49 | P.OP ---
Date of Procedure: 06/05/24 Preoperative Diagnosis: chronic sinusitis Inferior turbinate hypertrophy Postoperative Diagnosis: same Procedure(s) Performed: bilateral functional endoscopic sinus surgery including bilateral maxillary antrostomy with removal of tissue from the maxillary sinuses Outfracture and submucous resection of the inferior turbinates Anesthesia: GISELA Surgeon: Carlos Ramos Estimated Blood Loss (ml): 5 Pathology: other (sinus contents) Condition: stable Disposition: PACU Indications for Procedure: is a 69-year-old white female who has history of endoscopic sinus surgery previously. She's had recurrent issues with nasal congestion and recurrent/chronic sinusitis Operative Findings: inferior turbinate hypertrophy Fungal debris within both maxillary sinuses grossly with some stenosis of the maxillary antrostomies Description of Procedure: the patient was brought in the operative suite and placed in a supine position. Patient underwent induction of general anesthesia with oral endotracheal intubation without difficulty. Patient prepped and draped in usual aseptic fashion with the orbits in the operating field for monitoring throughout the case computed tomography scan on the computer screen for review throughout the case also. 1% lidocaine with 1-100,000 epinephrine was infused submucosally lateral nasal wall bilaterally as well as anterior tips the middle turbinates bilaterally. While this was taking vasoconstrictive effect the inferior turbinates were infractured with Popejoy elevator partial submucous resection inferior turbinates performed with microdebrider 2 mm blade and then outfractured with the Popejoy elevator. The submucous resection removed a portion of the inferior turbinate bone and submucosal soft tissue. Full 0 and's 30 endoscopic examination is performed bilaterally. Proceeding on the left the maxillary antrostomy was enlarged with the microdebrider and fungal debris was removed from the floor the maxillary sinus with curved suction and giraffe forceps. This was then irrigated. This was cultured. Attention was then turned to the right where the right antrostomy was performed as it was on the left with also some minimal fungal debris on the right noted which was removed in the same fashion. Once this completed the patient was doing well with excellent hemostasis and therefore no packing was placed. The patient was allowed to emerge from general anesthesia having tolerated procedure well was extubated in the operating suite and transferred postoperative recovery area in satisfactory condition.
[2024-06-05 10:51] VITALS: TEMP 97
[2024-06-05 12:39] VITALS: BP 148/88; PULSE 77; RESP 14
== END 2024-06-05 12:53 | disposition home or self-care (01) ==
LOC: OR 08:11
PROVIDERS: ATTEND Otolaryngology
DX: J34.3 Hypertrophy of nasal turbinates (principal); I10 Essential (primary) hypertension; E78.5 Hyperlipidemia, unspecified; K21.9 Gastro-esophageal reflux disease without esophagitis; Z88.0 Allergy status to penicillin; Z88.2 Allergy status to sulfonamides; Z91.040 Latex allergy status; Z88.1 Allergy status to other antibiotic agents; Z88.5 Allergy status to narcotic agent; Z79.899 Other long term (current) drug therapy
CPT/HCPCS: 87070; 87205; 87075; 87102; 30140; 31267; J2250; J0330; J1100; J2405; J2003; J3010; J3490; J2704; J0736; J1596; 87077; 87186